=== PATIENT | male | born 1990 | race Caucasian/White ===

== ENCOUNTER 2023-10-02 20:40 | Emergency (ER) | payer BC ==
[2023-10-02] MEDS ORDERED: Ketorolac Tromethamine 30 MG (1 mL) VIAL ONE (22:25)
[2023-10-02] MEDS ORDERED: predniSONE 20 MG TAB ONE (22:25)
[2023-10-02] MEDS ORDERED: Cyclobenzaprine 10 MG TAB ONE (22:25)
== END 2023-10-02 22:55 | disposition home or self-care (01) ==
LOC: ERS 20:40
DX: S39.012A Strain of muscle, fascia and tendon of lower back, initial encounter (principal); X50.0XXA Overexertion from strenuous movement or load, initial encounter; Y93.89 Activity, other specified
CPT/HCPCS: 96372; 99283; J1885; J7512